=== PATIENT | female | born 1965 | race Caucasian/White ===

== ENCOUNTER 2020-03-14 11:26 | Emergency (ER) | payer BC, SELFPAY ==
--- NOTE | 2020-03-14 11:46 | XRR_ITS ---
PROCEDURE INFORMATION: Exam: XR Chest, 1 View Exam date and time: 03/14/2020 12:08 PM Age: 55 years old Clinical indication: Patient HX: C/O cough and shortness of breath. Covid symptoms TECHNIQUE: Imaging protocol: XR of the chest Views: 1 view. COMPARISON: [facility] Chest 2 views 09/02/2015 2:46 PM FINDINGS: Lungs: No lung consolidation or pulmonary edema. Scarring versus atelectasis in the left lung base. Prior pulmonary granulomatous disease. Pleural space: No pleural effusion or pneumothorax. Heart/Mediastinum: The cardiac silhouette is not enlarged. The mediastinal contours are normal. Bones/joints: No acute osseous abnormality. XR/XR chest 1V portable [id number] IMPRESSION: No acute finding. Given the history, consider CT CHEST.
--- NOTE | 2020-03-14 11:55 | ECG_ITS ---
[facility] Test Date: 2020-03-14 Pat Name: Ashlyn Elliott Department: Room: Gender: Female [employer] Worker: : 1965 Requested By: Claire Maxwell Order Number: [id number] Reginaldo MD: Shannon Aragon M.D. Measurements Intervals Anselmo Rate: 78 P: 4 PA: 144 QRS: 30 QRSD: 103 T: 4 QT: 356 QTc: 406 Interpretive Statements SINUS RHYTHM POSSIBLE RIGHT VENTRICULAR CONDUCTION DELAY [RSR (QR) IN V1/V2] WARNING: DATA QUALITY MAY AFFECT INTERPRETATION Compared to ECG 08/27/2015 11:26:34 T-wave abnormality no longer present Electronically Signed On 03-15-2020 6:55:09 CDT by Shannon Aragon M.D. [email or web address]
[2020-03-14 12:01] VITALS: BP 127/75; PULSE 77; RESP 18; TEMP 36.6; O2SAT 99; BMI 27.0
[2020-03-14 12:16] LABS: Basophils % 0.2 %; Eosinophils # 0.1 10^3/uL (0.0-0.8); Eosinophils % 3.2 %; Hematocrit 38.8 % (37.0-47.0); Hemoglobin 12.6 g/dL (11.5-15.3); Lymphocytes # 1.8 10^3/uL (0.8-4.8); Lymphocytes % 40.4 %; Mean Corpuscular HGB Conc 32.5 g/dL (30.0-36.0); Mean Corpuscular Hemoglobin 28.6 pg (28.0-34.0); Mean Platelet Volume 11.4 fL (7.4-10.4); Monocytes # 0.3 10^3/uL (0.2-0.9); Monocytes % 7.3 %; Neutrophils # 2.13 10^3/uL (1.8-7.7); Neutrophils % 48.7 %; Nucleated Red Blood Cells % 0 %; Platelet Count 181 10^3/cmm (130-400); Red Blood Count 4.41 10^6/uL (4.1-5.3); Red Cell Distribution Width 12.3 % (12.1-15.1); White Blood Count 4.4 10^3/uL (4.0-10.0)
[2020-03-14] MEDS: sodium chloride 0.9% 1,000 ML 999 ML IV (12:22)
[2020-03-14 12:35] LABS: Alanine Aminotransferase 21 U/L (0-33); Albumin Level 4.8 g/dL (3.5-5.2); Alkaline Phosphatase 103 IU/L (35-105); Anion Gap 15.2 (5-19); Aspartate Amino Transferase 25 U/L (0-32); Blood Urea Nitrogen 12 mg/dL (6-20); Calcium 10.2 mg/dL (8.5-10.5); Carbon Dioxide 25 mmol/L (22-29); Chloride 100 mmol/L (98-107); Globulin 2.8 g/dL (1.3-4.6); Glomerular Filtration Rate 74.2 mL/min (90-130); Glucose 102 mg/dL (65-115); Magnesium 2.3 mg/dL (1.7-2.3); Osmolality Calculated 278 mOsm/kg (285-295); Potassium 4.2 mmol/L (3.5-5.1); Sodium 136 mmol/L (136-145); Total Bilirubin 0.3 mg/dL (0.15-1.2); Total Protein 7.6 g/dL (6.6-8.7)
[2020-03-14 12:53] LABS: Rapid Strep A Test Negative (Negative)
[2020-03-14] MEDS: ketorolac 30 mg/mL INJ 10 MG IVP (12:53)
[2020-03-14 13:00] VITALS: BP 159/90; PULSE 85; RESP 18; O2SAT 99
[2020-03-14 13:05] LABS: Influenza A by IFA Negative (Negative); Influenza B by IFA Negative (Negative)
--- NOTE | 2020-03-14 13:39 | W.ED.URI ---
HPI - URI/Sore Throat General: Chief Complaint: Upper Respiratory Infection Stated Complaint: COVID SYMPTOMS Time Seen by Provider: 03/14/20 11:42 Source: patient Mode of arrival: ambulatory Limitations: no limitations History of Present Illness: HPI Narrative: Ashlyn is a very nice 55-year-old female who comes in complaining of generalized malaise, fatigue and sore throat. Patient is most adamantly concerned about covert exposure. She believes she may have been exposed to someone with a COVID virus. Her symptoms have been going on for 2 weeks and just not improving. She is never had a fever or cough or shortness of breath. She complains more of a sore throat and just fatigue. She denies any other complaints or concerns she is not aware of any exacerbating alleviating factors. She denies any similar symptoms in the past. Associated symptoms: Deny abdominal pain, chest pain, diarrhea, ear or mastoid pain, headache(s), nausea or vomiting Review of Systems Const: Reports: body aches, fatigue and malaise Eyes: Denies: change in vision, blurry vision, blind spots, photophobia, eye discharge or eye redness ENMT: Reports: throat pain; Denies: odynophagia, hoarseness, swelling of lips/tongue, oral sores, ear or mastoid pain, ear discharge, change in hearing or nasal discharge Card: Denies: chest pain, palpitations, irregular heart rhythm, edema, lightheadedness, syncope, pre-syncope, dyspnea on exertion or orthopnea Resp: Denies: dyspnea, productive cough, non-productive cough, wheezing, hemoptysis or chest congestion GI: Denies: abdominal pain, nausea, vomiting, hematemesis, coffee ground emesis, heartburn, diarrhea, constipation, GI cramping, hematochezia or melena : Denies: flank pain, dysuria, urinary frequency, urinary urgency or hematuria Musc: Denies: neck pain, back pain, extremity pain, extremity swelling, joint pain, joint swelling, joint redness, joint warmth or joint stiffness Skin/Breast: Denies: rash, pruritus, erythema, skin tenderness or jaundice Neuro: Denies: headache(s), numbness in extremities, weakness in extremities, sensory changes, lack of coordination, difficulty walking, dizziness, vertigo, confusion, Slurred speech present or seizure-like activity Moises/Lymph: Denies: easy bruising, easy bleeding, petechiae, purpura or enlarged lymph nodes All/Imm: Denies: urticaria, throat swelling, tongue swelling, facial swelling or acute wheezing PFSH ED PFSH: Medical History Fibromyalgia Graciela's disease Osteoarthritis Sleep apnea Physical Exam Const: COMMON NORMALS: no acute distress, patient oriented x3, no limitations, healthy appearing and well nourished GENERAL APPEARANCE: cooperative, well kempt and well developed HENMT: COMMON NORMALS: normocephalic, atraumatic, external ears normal, EAC's normal and Normal external nose present HEAD & SCALP: normal to inspection, normocephalic and atraumatic FACE & SINUS: normal facial exam and face symmetric NOSE: Normal external nose present and Normal nares present EXTERNAL EAR: Yes external ears normal EXTERNAL AUDITORY CANAL: EAC's normal MOUTH: Normal oral and palatal mucosa present, lip normal and tongue normal Eye: COMMON NORMALS: Equal, round and reactive pupils present and conjunctivae normal GENERAL EYE: appearance normal, both eyes and all related structures ALIGNMENT: Yes alignment normal PERIORBITAL: periorbital findings normal EYELID: eyelids normal CONJUNCTIVA: Yes conjunctivae normal SCLERA: sclerae normal PUPIL: Yes Equal, round and reactive pupils present Neck/C-Spine: COMMON NORMALS: full ROM, no lymphadenopathy, supple, no meningeal signs and no JVD GENERAL: Yes normal visual inspection and Yes trachea midline Chest: COMMONS NORMALS: normal inspection of the chest and normal palpation of entire chest wall Resp: COMMON NORMALS: normal respiratory effort, No retractions and No use of accessory muscles EFFORT & INSPECTION: Yes able to speak in complete sentences and Yes symmetric chest movement AUSCULTATION: no crackles, no rales, no rhonchi and no wheezes Cardio: COMMON NORMALS: no JVD, regular rate, regular rhythm, S1 normal heart sound present and S2 normal heart sound present RATE: regular rate RHYTHM: regular rhythm HEART SOUNDS: S1 normal heart sound present, S2 normal heart sound present, no click, no gallops, no murmurs, no rubs and abnormal split S2 GI: COMMON NORMALS: Soft to palpation and No hepatosplenomegaly present PALPATION: Yes Soft to palpation, No Tenderness to palpation present (GI), No Guarding due to palpation present (GI), No Rigid due to palpation, Yes No hepatosplenomegaly present, No Hernia present, No Palpable mass present and No Pulsatile mass present : COMMON NORMALS: Yes no CVA tenderness BLADDER/KIDNEY EXAM: Yes no CVA tenderness EXTERNAL FEMALE EXAM: No Hernia present Back/Pelvis: COMMON NORMALS: no CVA tenderness, thoracic and lumbar spine normal to inspection, no thoracic nor lumbar tenderness and thoraco-lumbar ROM normal Extremity: COMMON NORMALS: normal to inspection, full ROM, capillary refill normal, no joint enlargement, no clubbing, cyanosis or edema and no calf tenderness Neuro: COMMON NORMALS: patient oriented x3, CN's II-XII intact bilaterally, moves all extremities, no focal motor deficits and no sensory deficits noted MENINGEAL SIGNS: Yes no meningeal signs SPEECH: speech normal Psych: COMMON NORMALS: mental status grossly normal, Normal thought process present, cooperative, normal affect, speech normal and activity/motor behavior normal APPEARANCE: Yes well kempt SPEECH: Yes normal speech THOUGHT PROCESS: Normal thought process present Skin: COMMON NORMALS: no rashes or lesions noted, turgor normal, no jaundice, no petechiae and no mottling GENERAL SKIN EXAM: no rashes or lesions noted and turgor normal Course Vital Signs: Vital signs: Vital Signs Temperature 98 F 03/14/20 12:01 Pulse Rate 74 03/14/20 14:21 Respiratory Rate 18 03/14/20 14:21 Blood Pressure 115/81 03/14/20 14:21 Pulse Oximetry 99 03/14/20 14:21 MDM - URI/Sore Throat MDM Narrative: Medical decision making narrative: Patient was encouraged to hear her laboratory work-up and evaluation here was normal. She agrees to follow-up with her regular doctor for recheck. She will self quarantine until her COVID-19 test is available. This time I see no sign or symptom of life-threatening illness but the patient understands she could get worse and may need to return emergently for recheck. Lab Data: Labs: Lab Results 03/14/20 03/14/20 03/14/20 Range/Units 12:00 12:00 12:30 WBC 4.4 (4.0-10.0) 10^3/ uL RBC 4.41 (4.1-5.3) 10^6/u L Hgb 12.6 (11.5-15.3) g/dL Hct 38.8 (37.0-47.0) % MCV 88.0 (81-99) fL MCH 28.6 (28.0-34.0) pg MCHC 32.5 (30.0-36.0) g/dL RDW 12.3 (12.1-15.1) % Plt Count 181 (130-400) 10^3/c mm MPV 11.4 H (7.4-10.4) fL Neut % (Auto) 48.7 % Lymph % (Auto) 40.4 % Stephens % (Auto) 7.3 % Eos % (Auto) 3.2 % Baso % (Auto) 0.2 % Neut # (Auto) 2.13 (1.8-7.7) 10^3/u L Lymph # (Auto) 1.8 (0.8-4.8) 10^3/u L Stephens # (Auto) 0.3 (0.2-0.9) 10^3/u L Eos # (Auto) 0.1 (0.0-0.8) 10^3/u L Baso # (Auto) 0.0 (0.0-0.1) 10^3/u L Nucleated RBC % (a uto) 0 % Nucleated RBCs # 0.0 /100WBC Sodium 136 (136-145) mmol/L Potassium 4.2 (3.5-5.1) mmol/L Chloride 100 (98-107) mmol/L Carbon Dioxide 25 (22-29) mmol/L Anion Gap 15.2 (5-19) BUN 12 (6-20) mg/dL Creatinine 0.8 (0.5-0.9) mg/dL GFR Calculation 74.2 L (90-130) mL/min Glucose 102 (65-115) mg/dL Calculated Osmolal ity 278 L (285-295) mOsm/k g Calcium 10.2 (8.5-10.5) mg/dL Magnesium 2.3 (1.7-2.3) mg/dL Total Bilirubin 0.3 (0.15-1.2) mg/dL AST 25 (0-32) U/L ALT 21 (0-33) U/L Alkaline Phosphata se 103 (35-105) IU/L Total Protein 7.6 (6.6-8.7) g/dL Albumin 4.8 (3.5-5.2) g/dL Globulin 2.8 (1.3-4.6) g/dL Influenza Type A A g (Negative) Influenza Type B A g (Negative) Group A Strep Rapi d Negative (Negative) 03/14/20 Range/Units 12:30 WBC (4.0-10.0) 10^3/ uL RBC (4.1-5.3) 10^6/u L Hgb (11.5-15.3) g/dL Hct (37.0-47.0) % MCV (81-99) fL MCH (28.0-34.0) pg MCHC (30.0-36.0) g/dL RDW (12.1-15.1) % Plt Count (130-400) 10^3/c mm MPV (7.4-10.4) fL Neut % (Auto) % Lymph % (Auto) % Stephens % (Auto) % Eos % (Auto) % Baso % (Auto) % Neut # (Auto) (1.8-7.7) 10^3/u L Lymph # (Auto) (0.8-4.8) 10^3/u L Stephens # (Auto) (0.2-0.9) 10^3/u L Eos # (Auto) (0.0-0.8) 10^3/u L Baso # (Auto) (0.0-0.1) 10^3/u L Nucleated RBC % (a uto) % Nucleated RBCs # /100WBC Sodium (136-145) mmol/L Potassium (3.5-5.1) mmol/L Chloride (98-107) mmol/L Carbon Dioxide (22-29) mmol/L Anion Gap (5-19) BUN (6-20) mg/dL Creatinine (0.5-0.9) mg/dL GFR Calculation (90-130) mL/min Glucose (65-115) mg/dL Calculated Osmolal ity (285-295) mOsm/k g Calcium (8.5-10.5) mg/dL Magnesium (1.7-2.3) mg/dL Total Bilirubin (0.15-1.2) mg/dL AST (0-32) U/L ALT (0-33) U/L Alkaline Phosphata se (35-105) IU/L Total Protein (6.6-8.7) g/dL Albumin (3.5-5.2) g/dL Globulin (1.3-4.6) g/dL Influenza Type A A g Negative (Negative) Influenza Type B A g Negative (Negative) Group A Strep Rapi d (Negative) EKG Data^: EKG 1: Attestation: I personally reviewed and interpreted this EKG as follows: EKG interpretation date: 03/14/20 EKG interpretation time: 11:57 Interpretation: Normal sinus rhythm at 78 beats a minute, incomplete right bundle branch block, nonspecific ST and T wave changes. Discharge Plan Discharge Patient Disposition: Home Clinical Impression: Viral infection Condition: Stable Prescriptions: No Action levothyroxine 50 mcg capsule 50 mcg PO DAILY RF: 0 celecoxib [Celebrex] 200 mg capsule 200 mg PO BID RF: 0 amitriptyline 10 mg tablet 10 mg PO DAILY RF: 0 Discharge Orders: Discharge Order (Routine); Ordered 03/14/20 Ordered By: Claire Florence Referrals: Casimiro Orta DO [Referring] - 1-3 days Discharge Diet: Advance as tolerated Discharge Activity: Resume usual activity Patient Instructions: Pharyngitis (ED), Acute Cough (ED) Activity Restrictions/Additional Instructions: Please return to the ER immediately for any of the signs or symptoms listed on your discharge instruction sheets, worsening/changing of your symptoms, you are not getting better as quickly as expected, or for ANY other cause or concerns. Keep yourself at home and quarantined until you are contacted about the results of your COVID test. Return to the ER for worsening of your symptoms or for any cause for concern. Discharge Date/Time: 03/14/20 14:20 Coding Level of Care Code ED Motion Picture [employer] Lens Technician for Chg Fwd Exam Comprehensive
[2020-03-14 14:21] VITALS: BP 115/81; PULSE 74; RESP 18; O2SAT 99
[2020-03-16 07:40] LABS: Coronavirus Lab Test PTC SEE REPORT
--- NOTE | 2020-03-16 16:38 | PC.NURSE ---
Pt called and notified of negative COVID results.
== END 2020-03-14 14:20 | disposition home or self-care (01) ==
PROVIDERS: Emergency Provider Emergency Medicine
DX: B34.9 Viral infection, unspecified (principal)
CPT/HCPCS: 12345; 71045; 80053; 83735; 85025; 87081; 87635; 87804; 87880; 93005; 96360; 96361; 96365; 96374; 96375; 99283; J0131; J1885; J7030

== ENCOUNTER 2021-07-31 12:06 | Outpatient (CLI) | payer BC, SELFPAY ==
[2021-07-31 13:29] LABS: Thyroid Stimulating Hormone 1.97 uIU/mL (0.27-4.20)
[2021-07-31 13:35] LABS: Calcium 9.3 mg/dL (8.5-10.5)
[2021-07-31 13:43] LABS: Parathyroid Hormone 29.6 pg/mL (15-65)
== END 2021-07-31 12:07 | disposition home or self-care (01) ==
LOC: LAB 12:14
PROVIDERS: Visit Provider Internal Medicine
DX: E03.8 Other specified hypothyroidism (principal); E06.3 Autoimmune thyroiditis; K11.5 Sialolithiasis; Z87.442 Personal history of urinary calculi
CPT/HCPCS: 36415; 82310; 83970; 84439; 84443

== ENCOUNTER → 2021-11-05 09:52 | Outpatient (BNVA) | payer BC, SELFPAY | PROVIDERS: Visit Provider Internal Medicine | DX: E03.8 Other specified hypothyroidism (principal); E06.3 Autoimmune thyroiditis; R73.03 Prediabetes | CPT/HCPCS: 83036; 84439; 84443 ==

== ENCOUNTER 2022-01-19 10:47 | Outpatient (CLI) | payer BC, SELFPAY ==
[2022-01-19 11:34] LABS: Free T4 Free Thyroxine 1.21 ng/dL (0.82-1.77); Thyroid Stimulating Hormone 1.57 uIU/mL (0.27-4.20)
== END 2022-01-19 10:48 | disposition home or self-care (01) ==
PROVIDERS: Visit Provider Internal Medicine
DX: E03.8 Other specified hypothyroidism (principal); E06.3 Autoimmune thyroiditis; R73.03 Prediabetes
CPT/HCPCS: 84439; 84443

== ENCOUNTER 2022-06-09 12:50 | Outpatient (CLI) | payer BC, SELFPAY ==
[2022-06-09] MEDS: iohexol 350 mg/mL 100 mL Btl IV (13:56)
--- NOTE | 2022-06-09 14:00 | CT_ITS ---
WS: [id number] CT ABDOMEN NON-CONTRAST PLUS CONTRAST TECHNIQUE: Noncontrast CT of the abdomen and contrast-enhanced CT of the abdomen with coronal and sag ittal reformatted images. CLINICAL INFORMATION: adrenal adenoma COMPARISON: CT DLP: 1887.[address] scans at [facility] use at least one of these dose optimization techniques: automated e xposure control; mA and/or kV adjustment per patient size (includes targeted exams where dose is matc hed to clinical indication); or iterative reconstruction. FINDINGS: Again seen is the RIGHT adrenal lesion measuring 1.9 x 2.9 cm unchanged since the prior examination . LEFT adrenal gland is normal. Imaging and washout characteristics consistent with adrenal ad enoma. Calcified granuloma RIGHT lower lobe. Subsegmental atelectasis LEFT lower lobe. Tiny esophageal hiata l hernia. Diffuse fatty infiltration of the liver. Portal vein and splenic vein are patent. Normal spleen. Norm al pancreatic parenchymal enhancement. Normal caliber abdominal aorta. Normal celiac and SMA. Normal renal parenchymal enhancement. No hydronephrosis. Tiny fat-containing umbilical hernia. Normal appendix in the RIGHT lower quadrant. No abdominal lymph adenopathy. Mild disc space narrowing L3-L4. LEFT foraminal protrusion L2-L3 with moderate LEFT foraminal narrowi ng and impingement on the exiting LEFT L2 nerve root. CT/CT abdomen wo/w con [id number] IMPRESSION: 1. 1.9 x 2.9 cm RIGHT adrenal lesion with imaging characteristics compatible w ith adrenal adenoma. This is unchanged from previous. 2. No hydronephrosis in either kidney. 3. Normal LEFT adrenal gland. 4. LEFT foraminal protrusion L2-L3 appears new from previous with impingement on the exiting LEFT L2 nerve root. Recommend correlation LEFT L2 nerve root sym ptoms. Moderate LEFT L2-L3 foraminal narrowing. This can be followed up with MR I if indicated..
== END 2022-06-09 12:51 | disposition home or self-care (01) ==
LOC: RAD 12:51
PROVIDERS: Visit Provider Internal Medicine
DX: D35.00 Benign neoplasm of unspecified adrenal gland (principal)
CPT/HCPCS: 74170

== ENCOUNTER 2022-07-23 14:00 | Outpatient (CLI) | payer BC, SELFPAY ==
[2022-07-23 15:05] LABS: Free T4 Free Thyroxine 1.24 ng/dL (0.82-1.77); Thyroid Stimulating Hormone 1.02 uIU/mL (0.27-4.20)
[2022-07-26 12:30] LABS: Thyroglobulin AB 3 IU/mL (< or = 1); Thyroid Peroxidase Antobodies 5 IU/mL (<9)
[2022-07-29 17:08] LABS: TSH Receptor Binding Antibody 1.69 IU/L (< OR = 2.00)
== END 2022-07-23 14:01 | disposition home or self-care (01) ==
PROVIDERS: Visit Provider Internal Medicine
DX: E03.8 Other specified hypothyroidism (principal); E06.3 Autoimmune thyroiditis; R73.03 Prediabetes; Z87.442 Personal history of urinary calculi
CPT/HCPCS: 36415; 83516; 84439; 84443; 86376; 86800

== ENCOUNTER 2022-07-26 12:18 | Outpatient (CLI) | payer BC, SELFPAY ==
[2022-07-26 13:50] LABS: Urine Creatinine 35 mg/dL (28-217)
[2022-07-26 13:51] LABS: Creatinine 24 Hour Urine 971.3 mg/dL (601-1689); Total Volume Urine 2775 ml
[2022-07-30 18:44] LABS: Calculated Total (E+NE) 47 mcg/24 h (26-121)
[2022-08-03 09:55] LABS: Free Cortisol Urine 21.3 mcg/24 h (4.0-50.0); Total Urine 2775 mL; Urine Creatinine 1.01 g/24 h (0.50-2.15)
== END 2022-07-26 12:19 | disposition home or self-care (01) ==
LOC: LAB 12:20
PROVIDERS: Visit Provider Internal Medicine
DX: E03.8 Other specified hypothyroidism (principal); E06.3 Autoimmune thyroiditis; R73.03 Prediabetes; Z87.442 Personal history of urinary calculi
CPT/HCPCS: 82384; 82530; 82570